=== PATIENT | male | born 1990 | race Caucasian/White ===

== ENCOUNTER 2024-07-21 22:44 | Emergency (ER) | payer OTHER, SELFPAY ==
[2024-07-21 22:47] VITALS: BP 126/89
[2024-07-21] MEDS: ZOFRAN ODT (ORALLY DISINTEGRATING) 4 MG PO (22:57)
[2024-07-21 23:13] VITALS: BP 135/86
[2024-07-21 23:34] LABS: % Basophils 0.5 % (0-2); % Eosinophils 3.2 % (0-6); % Immature Granulocytes 0.4 % (0-0.5); % Lymphocytes 17.8 % (20.5-51.1); % Neutrophils 71.1 % (42.2-75.2); Absolute Basophils 0.1 10^3/uL (0-0.2); Absolute Eosinophils 0.3 10^3/uL (0-0.7); Absolute Lymphocytes 1.7 10^3/uL (1.2-3.4); Absolute Monocytes 0.7 10^3/uL (0.1-0.6); Absolute Neutrophils 6.8 10^3/uL (1.4-6.5); Hematocrit 41.7 % (39.0-52.0); Hemoglobin 14.6 g/dL (13.0-18.0); Mean Corpuscular Hgb 29.6 pg (27.0-31.0); Mean Corpuscular Volume 84.6 fL (80.0-94.0); Mean Platelet Volume 9.5 fL (7.4-10.4); Nucleated Red Blood Cells % 0 % (-); Platelet Count 239 10^3/uL (130-400); Red Blood Cell Count 4.93 10^6/uL (4.70-6.10); Red Cell Dist. Width 12.6 % (11.5-14.5); White Blood Cell Count 9.5 10^3/uL (4.8-10.8)
[2024-07-21 23:46] LABS: ALT (SGPT) 27 U/L (0-50); AST (SGOT) 28 U/L (17-59); Albumin 5.3 g/dl (3.5-5.0); Alkaline Phosphatase 72 U/L (38-126); Blood Urea Nitrogen 18 mg/dl (9-20); Calcium 10.2 mg/dl (8.4-10.2); Carbon Dioxide 23 mmol/L (22-30); Chloride 104 mmol/L (98-107); Glucose 108 mg/dl (70-99); Lipase 59 U/L (23-300); Potassium 4.2 mmol/L (3.5-5.1); Sodium 142 mmol/L (135-145); Total Bilirubin 0.4 mg/dl (0.2-1.3); Total Protein 7.8 g/dl (6.3-8.2); eGFR > 60.00
--- NOTE | 2024-07-21 23:51 | ED.GENMED ---
History of Present Illness
General
Chief Complaint: Breathing Problem
Source: patient
Time Seen by Provider: 07/21/24 23:18
History of Present Illness
History of Present Illness:
33-year-old male presents to the emergency room complaining of epigastric discomfort and a sensation that something is stuck in his esophagus. He has been producing saliva and 'white foam'. Symptoms began towards the end of a meal. Patient has
had episodes where he has felt esophageal obstruction but has passed spontaneously. He is never required endoscopy.
Past History
Past History
ED Past Medical History: None
ED Past Surgical History: None
Social History
Living: with family
Employment: Employed
Phy Exam
Physical Exam
Physical Exam:
General: Awake, Alert, Oriented X3. No acute distress.
Vitals: unremarkable
Head: Atraumatic
Eyes: Pupils equal, EOMI
Throat: Airway intact, no exudates
Neck: Trachea midline
Lungs: Clear and equal b/l
Heart: Regular rate, no murmurs
Abd: Soft, mild epigastric discomfort, No pulsatile mass
Neuro: Nonfocal
Skin: Warm, dry, no rash
Extremities: pulses equal b/l, no edema
Course
Orders/Labs/Results
Orders:
Orders
07/21/24 22:46
Electrocardiogram (*1) Urgent
Reason for Study: Shortness of Breath
EKG- Treatment ONCE
07/21/24 22:55
Ondansetron Orally Disint [Zofran Odt (Orally Disintegrating)] 4 mg .ROUTE .ST-MED ONE
07/21/24 22:57
Ondansetron Orally Disint [Zofran Odt (Orally Disintegrating)] 4 mg PO NOW STA
07/21/24 23:24
Complete Blood Count/With Diff Urgent
Comprehensive Metabolic Panel Urgent
Lipase Urgent
Troponin I Urgent
07/21/24 23:50
Glucagon [GlucaGen] 1 mg IV NOW STA
07/22/24 00:04
Glucagon [GlucaGen] 1 mg .ROUTE .STK-MED ONE
07/22/24 01:05
Pantoprazole [Protonix IV] 40 mg IV NOW STA
07/22/24 01:15
Mag Hydrox/Al Hydrox/Simeth [Maalox] 30 ml Phenobarb/Hyoscy/Atropine/Scop [] 10 ml Viscous Lidocaine 2% [Xylocaine Viscous Cup] 10 ml PO NOW
07/22/24 01:17
Mag Hydrox/Al Hydrox/Simeth [Maalox] 30 ml .ROUTE .STK-MED ONE
Phenobarb/Hyoscy/Atropine/Scop [] 10 ml .ROUTE .STK-MED ONE
Viscous Lidocaine 2% [Xylocaine Viscous Cup] 15 ml .ROUTE .STK-MED ONE
07/22/24 01:24
Pantoprazole [Protonix IV] 40 mg .ROUTE .STK-MED ONE
Abnormal Lab Results
07/21/24
23:24
Absolute Neuts (auto) 6.8 H 10^3/uL
(1.4-6.5)
Absolute Monos (auto) 0.7 H 10^3/uL
(0.1-0.6)
Lymphocytes % 17.8 L %
(20.5-51.1)
Glucose 108 H mg/dl
(70-99)
Albumin 5.3 H g/dl
(3.5-5.0)
07/21/24 23:24
07/21/24 23:24
Vital Signs
Initial and Last Documented VS:
Initial Vital Signs
Temp Pulse Resp BP Pulse Ox
98.0 F 68 16 126/89 99
07/21/24 22:47 07/21/24 22:47 07/21/24 22:47 07/21/24 22:47 07/21/24 22:47
Last Documented Vital Signs
Temp Pulse Resp BP Pulse Ox
98.0 F 74 14 145/97 98
07/21/24 22:47 07/22/24 00:00 07/22/24 00:00 07/22/24 00:00 07/21/24 23:45
MDM/Problems Addressed
Differential Diagnosis Includes:
Esophageal impaction, pancreatitis, gastritis
MDM/Problems Addressed:
Patient's symptoms are highly suggestive of esophageal obstruction to an impacted food bolus. Patient show glucagon. Shortly after glucagon he retched and cleared the obstruction. After this he was able to tolerate his secretions and some liquid
intake. Patient given a dose of Protonix here as well as a GI cocktail. Recommend he follow-up with GI as an outpatient. Given contact information for gastroenterology office here. Also recommend he take a 1 month course of [id number]
Prilosec
*Pulse Oximetry
Patient hypoxic: no
*Critical Care Note
Total Time (30-74mins, 75-104mins- exclusive of procedures): Not Applicable
ED Attending Note
-
Portions of this chart may have been created with voice recognition software.� Occasional wrong word or��sound alike� substitutions may have occurred due to the inherent limitations of voice recognition software.
Discharge Plan
Departure
Patient Disposition: Home (Routine Discharge)
Date of Disposition: 07/22/24
Time of Disposition: 01:02
Patient with high blood pressure during this ER visit?: No
Condition: Good
Discharge Problem:
Food impaction of esophagus
Instructions: Food Obstruction
Prescriptions:
No Action
ondansetron 4 mg film
4 mg PO Q8H PRN (Reason: nausea and vomiting) Qty: 30 0RF
Referrals:
Emily Monaco MD [Active] -
Noah Shah DO [Family Provider] -
Activity Restrictions/Additional Instructions:
I recommend taking Prilosec OTC for 4 weeks. Follow up with [facility] whose number is provided on these discharge instructions.
Interventions
Interventions:
*Risk Screen - Suicide Last Done: 07/21/24 22:47
*General Assessment Last Done: 07/21/24 22:47
*Neglect/Abuse Screening Last Done: 07/21/24 22:47
*ED COVID-19 Vaccine History Last Done: 07/21/24 22:47
ED- Cardiac Assessment Last Done: 07/21/24 23:20
ED- Pulmonary Assessment Last Done: 07/21/24 23:20
Discharge Date and Time
Print Language: [place]
[2024-07-21 23:58] LABS: Troponin I < 0.012 ng/ml
[2024-07-22] VITALS: BP 145/97
[2024-07-22] MEDS: GlucaGen 1 MG IV (00:01)
[2024-07-22] MEDS: MAALOX 50 PO (01:20)
[2024-07-22] MEDS: PROTONIX IV 40 MG IV (01:20)
== END 2024-07-22 01:25 | disposition home or self-care (01) ==
LOC: EMR 22:44
PROVIDERS: Student in an Organized Health Care Education/Training Program; EMERGENCY PHYSICIAN Emergency Medicine; FAMILY PHYSICIAN Family Medicine
DX: T18.128A Food in esophagus causing other injury, initial encounter (principal); W44.F3XA Food entering into or through a natural orifice, initial encounter
CPT/HCPCS: 99284; 96374; 96375; 80053; 83690; 84484; 85025; 93005; J1610

== ENCOUNTER 2024-09-15 06:16 | Day surgery (SDC) | payer OTHER, SELFPAY | END 2024-09-15 11:13 | disposition home or self-care (01) | LOC: GI 06:16 | PROVIDERS: ATTENDING PHYSICIAN Internal Medicine | PROC: 0DB28ZX Excision of Middle Esophagus, Via Natural or Artificial Opening Endoscopic, Diagnostic (ICD-10-PCS; 2024-09-15) | PROC: 0DB68ZX Excision of Stomach, Via Natural or Artificial Opening Endoscopic, Diagnostic (ICD-10-PCS; 2024-09-15) | PROC: 0DB38ZX Excision of Lower Esophagus, Via Natural or Artificial Opening Endoscopic, Diagnostic (ICD-10-PCS; 2024-09-15) | PROC: 0DB98ZX Excision of Duodenum, Via Natural or Artificial Opening Endoscopic, Diagnostic (ICD-10-PCS; 2024-09-15) | DX: R13.10 Dysphagia, unspecified (principal); K20.0 Eosinophilic esophagitis | CPT/HCPCS: 43239; 88305; 88342 ==

== ENCOUNTER 2025-01-18 06:16 | Day surgery (SDC) | payer OTHER, SELFPAY | END 2025-01-18 09:41 | disposition home or self-care (01) | LOC: GI 06:16 | PROVIDERS: ATTENDING PHYSICIAN Internal Medicine | DX: K22.89 Other specified disease of esophagus (principal); K20.0 Eosinophilic esophagitis | CPT/HCPCS: 43239; 88305 ==